=== PATIENT | female | born 1935 | race Hispanic/Latino ===

== ENCOUNTER 2019-06-04 17:16 | Emergency (ER) | payer MEDICARE, SELFPAY ==
[2019-06-04 17:36] VITALS: BP 198/87; PULSE 70; RESP 16; TEMP 36.6; O2SAT 99; BMI 26.8
--- NOTE | 2019-06-04 18:04 | ED.BACK ---
HPI - Back Pain/Injury <ADELAIDA Art - Last Filed: 06/04/19 19:09> General Chief Complaint: Back Pain/Injury Stated Complaint: right leg shooting pains x7 days Time Seen by Provider: 06/04/19 17:46 Source: patient and family Limitations: no limitations History of Present Illness HPI Narrative: This is a 83-year-old female, smoker, who presents to ED with family member with chief complain of right buttock pain radiating down to right lateral and posterior leg down to ankle for 7 days. Patient reports today she fell some tingling and numbness to her legs but denies weakness on affected leg. Patient denies fever, chills, nausea or vomiting, urinary/stool incontinence, saddle anesthesia, or rash. Patient has been using a walker for ambulation due to back pain but with limping gait. Patient reports she also has a walker at home. Describes pain as aching and constant. Patient states she has not been the same after she had fell on her buttock down the stairs in October 2018. Patient had taken x-ray test on Wednesday at would be physician's office but he is not aware of results. Patient declines additional x-ray test at this time stating will follow up with her physician but is requesting some medication for pain relief. Patient denies urinary symptoms such as urgency, dysuria, hematuria. Related Data Home Medications Medication Instructions Recorded Confirmed ASPIRIN (#ASPIRIN) 80 mg PO #0 02/19/12 DIPHENHYDRAMINE HCL 25 mg PO Q6HP #0 02/19/12 (Diphenhydramine Hydrochloride) levothyroxine 0.1 mg PO QDAY #0 02/19/12 simvastatin 20 mg PO HS #0 02/19/12 Fish Oil (#FISH OIL) 1,200 iu PO #0 02/23/12 Previous Rx's Medication Instructions Recorded cyclobenzaprine 5 mg PO BID PRN #10 tab 06/04/19 lidocaine 1 patch TOP DAILY #15 each 06/04/19 Allergies Allergy/AdvReac Type Severity Reaction Status Date / Time metoprolol Allergy Mild RX TO A Verified 06/04/19 17:36 GENERIC BRAND HUVES Review of Systems <ADELAIDA Art Last Filed: 06/04/19 19:09> Review of Systems Narrative: General: Denies fever, chills, fatigue, malaise, sweats. HEENT: Denies sinus pain, ear pain, sore throat, difficulty swallowing, dizziness. Respiratory: Denies dyspnea, cough, wheezing, hemoptysis, sputum. Cardiovascular: Denies chest pain, palpitations, orthopnea, edema. Gastrointestinal: Denies nausea, vomiting, abdominal pain, diarrhea, constipation, melena. : Denies dysuria, frequency, incontinence, hematuria, urinary retention. Musculoskeletal: See HPI Skin: Denies rash, skin lesions, or other. Neurologic: Denies weakness, headache, numbness, change in speech, confusion, seizures, incoordination. Psychiatric: No concerning psychosocial issues. 12-point review of systems is negative except for those stated above. Patient History <ADELAIDA Art - Last Filed: 06/04/19 19:09> Medical History No significant past medical history (Acute) Social History Smoking Status: Current every day smoker Substance Use Type: does not use Exam <ADELAIDA Art - Last Filed: 06/04/19 19:09> Narrative Exam Narrative: General appearance: well developed, well nourished, in no acute distress. Head: normocephalic, atraumatic, no scalp lesions, non-tender. Eye: pupil equal, round. EOMI. Nose: nares patent. Oral: mucosa moist. Neck/Thyroid: neck supple, full range of motion, no visible masses. Skin: no suspicious rashes, lesions over visible areas. Warm and dry. Heart: no clubbing, no cyanosis, no edema. Lungs: Breathing even and unlabored. No stridor. No accessory muscles used. Chest: normal shape and expansion. Abdomen: non-obese, non-distended. Neurologic: alert and oriented. Cognitive exam, SHANK CUTTER and PNS grossly intact on informal exam. Psych: good eye contact, normal affect. Initial Vital Signs Initial Vital Signs: Vital Signs Temperature 97.8 F 06/04/19 17:36 Pulse Rate 70 06/04/19 17:36 Respiratory Rate 16 06/04/19 17:36 Blood Pressure 198/87 H 06/04/19 17:36 Pulse Oximetry 99 06/04/19 17:36 Back/Spine/Pelvis Thoracic/Lumbar Spine: thoracic and lumbar spine normal to inspection, pain with thoraco-lumbar ROM (Twisting motion due to pain), No paraspinal tenderness, thoraco-lumbar ROM limited (Twisting motion due to pain), No thoracic spinal tenderness, No lumbar spinal tenderness, No straight leg raise positive and tilt present Sacroiliac Joints: tender to palpation <Regulo Fleming DO - Last Filed: 06/04/19 22:05> Initial Vital Signs Initial Vital Signs: Vital Signs Temperature 97.8 F 06/04/19 17:36 Pulse Rate 70 06/04/19 17:36 Respiratory Rate 16 06/04/19 17:36 Blood Pressure 198/87 H 06/04/19 17:36 Pulse Oximetry 99 06/04/19 17:36 Scores <LIDIA ArtP - Last Filed: 06/04/19 19:09> GCS [place] coma scale eye opening: Spontaneous [place] coma scale verbal response: Orientated Jv coma scale motor response: Obey commands [place] coma scale total score: 15 Course <ADELAIDA Art - Last Filed: 06/04/19 19:09> Orders Ordered: Discontinued Medications Acetaminophen (Tylenol) 650 mg PO NOW ONE Stop: 06/04/19 18:03 Last Admin: 06/04/19 18:11 Dose: 650 mg Documented by: ANITHA Cyclobenzaprine HCl (Flexeril) 5 mg PO NOW ONE Stop: 06/04/19 18:03 Last Admin: 06/04/19 18:11 Dose: 5 mg Documented by: ANITHA Lidocaine (Lidoderm) 1 each TOP NOW ONE Stop: 06/04/19 18:03 Last Admin: 06/04/19 18:11 Dose: 1 each Documented by: ANITHA Vital Signs Vital signs: Vital Signs - 8 hr 06/04/19 17:36 06/04/19 19:21 Temperature 97.8 F Pulse Rate 70 68 Respiratory Rate 16 15 Blood Pressure 198/87 H Blood Pressure [Left Arm] 177/84 H Pulse Oximetry 99 100 <DO Devorah Schwab Last Filed: 06/04/19 22:05> Orders Ordered: Discontinued Medications Acetaminophen (Tylenol) 650 mg PO NOW ONE Stop: 06/04/19 18:03 Last Admin: 06/04/19 18:11 Dose: 650 mg Documented by: ANITHA Cyclobenzaprine HCl (Flexeril) 5 mg PO NOW ONE Stop: 06/04/19 18:03 Last Admin: 06/04/19 18:11 Dose: 5 mg Documented by: ANITHA Lidocaine (Lidoderm) 1 each TOP NOW ONE Stop: 06/04/19 18:03 Last Admin: 06/04/19 18:11 Dose: 1 each Documented by: ANITHA Vital Signs Vital signs: Vital Signs - 8 hr 06/04/19 17:36 06/04/19 19:21 Temperature 97.8 F Pulse Rate 70 68 Respiratory Rate 16 15 Blood Pressure 198/87 H Blood Pressure [Left Arm] 177/84 H Pulse Oximetry [address] [facility] - Back Pain/Injury <Efren ADELAIDA Tabares - Last Filed: 06/04/19 19:09> Differential Diagnosis Differential diagnosis: Likely lumbar radiculopathy, sciatica, strain of lumbar region and other (Compression lumbar fracture) Medical Records Attestation: I reviewed the patient's medical records. [facility] Narrative Medical decision making narrative: This is a 83-year-old female who presents to ED with 7 day duration of right-sided low back pain with radiation down to her ankle. Patient denies constitutional symptoms, urinary symptoms, or rash. Patient denies saddle anesthesia or incontinence for bladder or bowel. Lumbar x-ray was already taken on Wednesday in [facility] that was arranged by her primary care physician. However, patient presents to ED today for pain management. She declines additional or repeating imaging test today. Patient was medicated with Flexeril, lidocaine patch, Tylenol in addition to Aleve the patient had taken prior coming into ED. Patient reports pain improved at this time and discharged to home with same medications. Patient advised to follow up with her primary care physician this coming week and return precautions were discussed with the patient. Patient verbalized understanding and agrees with the treatment plan. Discharge Plan Departure Patient Disposition: Home Clinical Impression: Low back pain Qualifiers: Chronicity: acute Back pain laterality: right Sciatica presence: with sciatica Sciatica laterality: sciatica of right side Qualified Code(s): M54.41 - Lumbago with sciatica, right side Discharge Date/Time: 06/04/19 19:44 Instructions: DI for Back Pain With Sciatica Activity Restrictions/Additional Instructions: You have been diagnosed with [right low back radiating to leg]. What to do: *Take your medications as directed. You for medicated with Flexeril, lidocaine patch, Tylenol while in ED. Flexeril may cause drowsiness so please do not drive, drink alcohol or operate heavy equipments. Please take Tylenol 650 mg up to 4 times a day with your Aleve at home to test twice a day with food. Please use a walker for ambulation aid. You can use warm pack intermittently for muscle relaxation. *Follow up with your primary care provider in 2-3 days, call for an appointment. Let them know you were seen in the ED and that we asked you to be seen in follow up. *Return to ED if you have any new, worsening, or concerning symptoms, such as [weakness to her legs, incontinence, rash, fever, chest pain, breathing difficulty, unable to tolerate medication, urinary symptoms, or any acute concerns]. Prescriptions: New lidocaine 5 % adhesive patch,medicated 1 patch TOP DAILY Qty: 15 RF: 0 cyclobenzaprine 5 mg tablet 5 mg PO BID PRN (Reason: muscle spasm) Qty: 10 RF: 0 No Action levothyroxine 100 MCG tablet 0.1 mg PO QDAY Qty: 0 RF: 0 simvastatin 20 MG tablet 20 mg PO HS Qty: 0 RF: 0 ASPIRIN (#ASPIRIN) 80 mg PO Qty: 0 RF: 0 DIPHENHYDRAMINE HCL (Diphenhydramine Hydrochloride) 25 mg PO Q6HP Qty: 0 RF: 0 Fish Oil (#FISH OIL) 1,200 iu PO Qty: 0 RF: 0 Referrals: Bertha Rothman DO [Primary Care Provider] -
[2019-06-04] MEDS: LIDOCAINE PATCH 1 EACH ADH..PATCH TOP (18:11)
[2019-06-04] MEDS: ACETAMINOPHEN 325 MG TABLET 650 MG PO (18:11)
[2019-06-04] MEDS: CYCLOBENZAPRINE 5 MG TABLET PO (18:11)
[2019-06-04 19:21] VITALS: BP 177/84; PULSE 68; RESP 15; O2SAT 100
== END 2019-06-04 19:44 | disposition home or self-care (01) ==
PROVIDERS: Emergency Provider Nurse Practitioner Family; PCP Family Medicine
DX: M54.41 Lumbago with sciatica, right side (principal)
CPT/HCPCS: 99282; 99283